=== PATIENT | female | born 1955 | race Hispanic/Latino ===

== ENCOUNTER 2017-11-18 20:42 | Emergency (ER) | payer BC, OTHER ==
[2017-11-18 20:49] VITALS: RESP 18
[2017-11-18] MEDS ORDERED: Tdap Vaccine 0.5 ml Vial (10-64 yrs) IM ONE ×2 (21:08→22:26)
--- NOTE | 2017-11-18 21:19 | ED PDOC ---
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 Prior to arrival, patient tripped over uneven concrete and fell landing on her left knee and elbow. Patient sustained abrasions to both the knee and elbow but denies pain to elbow. 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 Patient does express concern for knee injury after a similar event occurred 4 months ago. During that event, patient had a patella fracture to the same knee. No surgical intervention was required. Denies head injury or LOC. Patient has no other complaints. Pain was rated a 8/10 and is localized with no radiation. She is unable to recall last tetanus vaccination. No other extremity pain present. PMD: none Orthopedist: Dr. Lebron from [facility] Past Medical History Reviewed: Historical Data, Nursing Documentation, Vital Signs Vital Signs: Last Vital Signs Temp 97.7 F 11/18/17 20:47 Pulse 66 11/18/17 20:47 Resp 18 11/18/17 20:47 BP 136/79 11/18/17 20:47 Pulse Ox 99 11/18/17 20:47 - Medical History PMH: Hypothyroidism, Osteoporosis - Surgical History Surgical History: - Family History Family History: States: Unknown Family Hx - Social History Current smoker - smoking cessation education provided: No Alcohol: Social Drugs: Denies - Home Medications Home Medications: Ambulatory Orders Medication Instructions Recorded Acetaminophen [Acetaminophen 8 650 mg PO Q8 PRN #21 tablet.er 11/18/17 Hour] Meloxicam [Mobic] 15 mg PO DAILY PRN #14 tab 11/18/17 - Allergies Allergies/Adverse Reactions: Allergies Allergy/AdvReac Type Severity Reaction Status Date / Time No Known Allergies Allergy Verified 11/18/17 21:01 Review of Systems Musculoskeletal: Positive for: Other (Left knee pain) Skin: Positive for: Other (Abrasion to left knee and elbow) Neurological: Negative for: Other (LOC) Physical Exam - Reviewed Nursing Documentation Reviewed: Yes Vital Signs Reviewed: Yes - Physical Exam Comments: GENERAL APPEARANCE: Patient is awake, alert, oriented x 3, in no acute distress. Resting comfortably. SKIN: Superficial abrasions to the left elbow and left knee with no active bleeding; Warm, dry; (-) cyanosis. CHEST AND RESPIRATORY: (-) chest wall tenderness (-) rales, (-) rhonchi, (-) wheezes; breath sounds equal bilaterally. Respirations even and nonlabored. HEART AND CARDIOVASCULAR: (-) irregularity LEFT ELBOW: Full ROM with no tenderness, effusion, crepitus, erythema, or deformity. LEFT KNEE: Diffuse anterior tenderness with small effusion, faint ecchymosis to patella, no instability on valgus or varus stress. FROM with pain on flexion. Negative anterior or posterior drawer sign. Sensation intact throughout. (+) distal pulses. Remainder of lower extremity nontender with FROM. ABDOMEN AND GI: Soft; (-) tenderness (-) distention (-) guarding. BACK: (-) tenderness. NEURO AND PSYCH: Mental status as above. No gross sensory deficits. Gait: limping. Speech: clear. (-) facial asymmetry (-) aphasia. - ECG O2 Sat by Pulse Oximetry: 99 (RA) Pulse Ox Interpretation: Normal Medical Decision Making Medical Decision Making: Initial Impression: Skin abrasions and acute knee pain s/p fall Initial Plan: --Left knee X-ray --Tetanus 0.5mL IM --Toradol 30mg IM --Re-evaluation 2209 Knee XR: (-) acute fracture Patient notified that official radiology read will be available in 24 hours and that she would be notified of any discrepancies via phone. Bacitracin dressings applied to abrasions by ED RN. Tramadol 50mg PO ordered for additional pain control. Patient states her is driving her home. Educated on wound care. 2239 On re-evaluation, patient reports improvement of symptoms. On exam, patient remains AAOx3, in no acute distress. Lungs clear to auscultation, cardiac RRR, repeat neuro exam shows no focal findings. Vitals stable. RICE encouraged. Lab/Diagnostic results d/w the patient in great detail. Diagnosis of acute knee pain/contusion s/p fall, abrasions d/w the patient. Based on history, exam and diagnostic results, plan will be for outpatient follow up with ortho. Patient instructed to follow-up with pmd / referral provided / the clinic in 1- 2 days without fail. Advised to take medication as prescribed. Return to the emergency room at any time for any new or worsening symptoms. Patient states she fully agrees with and understands discharge instructions. States that she agrees with the plan and disposition. Verbalized and repeated discharge instructions and plan. I have given the patient opportunity to ask any additional questions. Scribe Attestation: Documented by Dmitry Gallo acting as a scribe for Shante YEAGER. Provider Scribe Attestation: All medical record entries made by the Scribe were at my direction and personally dictated by me. I have reviewed the chart and agree that the record accurately reflects my personal performance of the history, physical exam, medical decision making, and the department course for this patient. I have also personally directed, reviewed, and agree with the discharge instructions and disposition. Disposition - Clinical Impression Clinical Impression: Knee pain, Skin abrasion, Knee contusion, Fall - Patient ED Disposition Is Patient to be Admitted: No Counseled Patient/Family Regarding: Studies Performed, Diagnosis, Need For Followup, Rx Given - Disposition Referrals: Mk Varela MD [Medical Doctor] - Disposition: Routine/Home Disposition Time: 22:40 Condition: STABLE Additional Instructions: FOLLOW UP WITH YOUR ORTHOPEDIST AT [facility] IN 1-2 DAYS FOR FURTHER EVALUATION. The emergency medical care you received today was directed at your acute symptoms. If you were prescribed any medication, please fill it and take as directed. It may take several days for your symptoms to resolve. Return to the Emergency Department if your symptoms worsen, do not improve, or if you have any other problems. Please contact your doctor in 2 days for re-evaluation and follow up / or call one of the physicians/clinics you have been referred to that are listed on the Patient Visit Information form that is included in your discharge packet. Bring any paperwork you were given at discharge with you along with any medications you are taking to your follow up visit. Our treatment cannot replace ongoing medical care by a primary care provider (PCP) outside of the emergency [facility]. Prescriptions: Acetaminophen [Acetaminophen 8 Hour] 650 mg PO Q8 PRN #21 tablet.er PRN Reason: Pain, Moderate (4-7) Meloxicam [Mobic] 15 mg PO DAILY PRN #14 tab PRN Reason: Pain, Moderate (4-7) Instructions: Taking Care of Bruises, Skin Abrasions, Contusion (DC), Knee Pain (DC) Forms: [employer] (Mosotho) Print Language: YORUBA - POA Present On Arrival: Falls Or Trauma
[2017-11-18] MEDS ORDERED: Bacitracin 500 Units/gm Oint Foilpak UD TOP STA (22:09)
[2017-11-18] MEDS ORDERED: Bacitracin 500 Units/gm Oint Foilpak UD ONE (22:17)
[2017-11-18 22:53] VITALS: BP 122/78; PULSE 78; TEMP 98
--- NOTE | 2017-11-19 12:35 | RAD ---
Date of service: 11/18/2017 PROCEDURE: Left Knee Radiographs. HISTORY: Pain. COMPARISON: None. FINDINGS: BONES: Bone alignment and mineralization are normal. There is no acute displaced fracture or bone destruction. JOINTS: Normal. No osteoarthritis. JOINT EFFUSION: Moderate suprapatellar joint effusion. OTHER FINDINGS: None. IMPRESSION: No acute fracture or dislocation. Moderate suprapatellar joint effusion.
[2017-11-20 13:56] VITALS: O2SAT 99
== END 2017-11-18 22:52 | disposition home or self-care (01) ==
LOC: H.ER 20:42
DX: S80.00XA Contusion of unspecified knee, initial encounter (principal); S80.212A Abrasion, left knee, initial encounter; S80.211A Abrasion, right knee, initial encounter; W01.0XXA Fall on same level from slipping, tripping and stumbling without subsequent striking against object, initial encounter
CPT/HCPCS: 73562; 90471; 90715; 96372; 99283; J1885